=== PATIENT | female | born 2000 | race African-American/Black ===

== ENCOUNTER 2021-02-16 01:24 | Emergency (ER) | payer OTHER ==
[~2021-02-16] VITALS: Ht 175.3 cm; Wt 74.0 kg
[2021-02-16 01:56] VITALS: BP 119/75
[2021-02-16] MEDS ORDERED: FAMOTIDINE 20MG TABLET PO ONE (02:15)
[2021-02-16] MEDS ORDERED: PREDNISONE 20MG TABLET PO ONE (02:15)
[2021-02-16] MEDS ORDERED: DIPHENHYDRAMINE 25MG CAPSULE PO ONE (02:15)
[2021-02-16] MEDS ORDERED: FAMO-135 MT (03:02)
[2021-02-16] MEDS ORDERED: P20 MT (03:02)
[2021-02-16] MEDS ORDERED: DIPH25CA83 MT (03:02)
== END 2021-02-16 04:23 | disposition home or self-care (01) ==
LOC: ER 01:24
DX: T55.0X1A Toxic effect of soaps, accidental (unintentional), initial encounter (principal); L23.5 Allergic contact dermatitis due to other chemical products; Y92.012 Bathroom of single-family (private) house as the place of occurrence of the external cause
CPT/HCPCS: 81025; 99284; J7512; Q0163